=== PATIENT | male | born 1965 | race Caucasian/White ===

== ENCOUNTER 2018-10-18 09:09 | Outpatient (CLI) | payer OTHER, BC ==
[2018-10-18 10:30] LABS: #Eosinphils 0.1 thou/uL (0.0-0.7); #Lymphocytes 1.4 thou/uL (1.20-3.40); #Monocytes 0.8 thou/uL (0.11-0.59); #Neutrophils 6.3 thou/uL (1.40-6.50); %Basophils 0.2 % (0.0-1.0); %Eosinophils 1.7 % (0.0-10.0); %Lymphocytes 16.1 % (21.0-51.0); %Monocytes 9.2 % (0.0-10.0); %Neutrophils 72.8 % (42.0-75.0); Hemoglobin 14.5 g/dL (14.0-18.0); Mean Corpuscular HGB CONC 34.1 g/dL (32.0-36.0); Mean Corpuscular Hemoglobin 28.9 pg (27.0-31.0); Mean Corpuscular Volume 84.7 fL (78.0-98.0); Mean Platelet Volume 7.6 fL (7.4-10.4); Platelet Count 256 thou/uL (130-400); RBC Distribution Width 12.7 % (11.5-14.5); White Blood Cell (WBC) Count 8.7 thou/uL (4.8-10.8)
[2018-10-18 10:56] LABS: ALT (SGPT) 18 U/L (8-55); AST (SGOT) 17 U/L (5-34); Albumin 4.1 g/dL (3.5-5.0); Alkaline Phosphatase 83 U/L (40-150); Anion Gap 12 mmol/L (10-20); BUN (Urea Nitrogen) 15 mg/dL (8.4-25.7); Bilirubin, Total 0.5 mg/dL (0.2-1.2); Calc. Creatinine Clearance 0 mL/min (70-130); Calcium 9.3 mg/dL (7.8-10.44); Carbon Dioxide 23 mmol/L (22-29); Chloride 106 mmol/L (98-107); Estimated GFR-MDRD Greater than 90; Globulin 2.6 g/dL (2.4-3.5); Glucose 97 mg/dL (70-105); Potassium 4.3 mmol/L (3.5-5.1); Protein, Total 6.7 g/dL (6.0-8.3); Sodium 137 mmol/L (136-145)
--- NOTE | 2018-10-18 12:51 | EKG ---
Test Reason : Blood Pressure : / mmHG Vent. Rate : 067 BPM Atrial Rate : 067 BPM P-R Int : 188 ms QRS Dur : 098 ms QT Int : 388 ms P-R-T Axes : 057 046 027 degrees QTc Int : 409 ms Normal sinus rhythm Normal ECG No previous ECGs available Confirmed by DANIEL OBRJAS, DR. Ching ([id number]) on 10/18/2018 12:51:16 PM Referred By: KHOA Confirmed By:DR. Jeane SANCHEZ MD
== END 2018-10-18 09:10 | disposition home or self-care (01) ==
LOC: LABBT 09:09
PROVIDERS: ATTEND Surgery
DX: Z01.818 Encounter for other preprocedural examination (principal); K40.90 Unilateral inguinal hernia, without obstruction or gangrene, not specified as recurrent
CPT/HCPCS: 80053; 85025; 93005; 93010

== ENCOUNTER 2018-10-19 05:57 | Day surgery (SDC) | payer OTHER, BC ==
[2018-10-18 09:43] VITALS: BMI 42.5
[2018-10-19] MEDS ORDERED: Bupivacaine/Epinephrine 0.25% 30 ML VIAL ONE (06:32)
[2018-10-19] MEDS ORDERED: Levofloxacin 500 mg/D5W 100 ml Premix Bag ONE (06:35)
[2018-10-19] MEDS ORDERED: Fentanyl 100 MCG/2 ML VIAL ONE (06:45)
--- NOTE | 2018-10-19 11:46 | OP ---
DATE OF PROCEDURE: 10/19/2018 PREOPERATIVE DIAGNOSIS: Bilateral inguinal hernias. PROCEDURE PERFORMED: Laparoscopic robotic-assisted right inguinal hernia repair. INDICATIONS: This is a 53-year-old male, who was felt to have bilateral inguinal hernias preoperatively. FINDINGS: He only had a right inguinal hernia. There was no left-sided hernia. He is morbidly obese, so it was difficult to tell preoperatively. DESCRIPTION OF PROCEDURE: After informed consent was obtained, the patient was taken to the operating room and given general endotracheal anesthesia, he was placed in the supine position. Abdomen was prepped and draped in usual fashion. Local anesthesia infiltrated subcutaneously and deep, and a supraumbilical incision was performed. Subcu divided sharply. The fascia grasped and incision made. A blunt 12 mm trocar inserted. Pneumoperitoneum was created to a pressure of 15 mmHg. Under direct vision utilizing the 30-degree laparoscope, two 8 mm ports were placed just lateral to the rectus at the level of first incision. The patient was then placed in Trendelenburg position and the robot docked. Then, I went below. The pelvis was inspected. There was a definite right inguinal hernia, but there was no left inguinal hernia. I took a picture to document it. So, the right inguinal hernia was repaired. The peritoneum was opened from medial umbilical ligament laterally. Then, the subperitoneal plane was developed using blunt and sharp dissection. The pubic tubercle was exposed. The hernia was found and the hernia sac was dissected out. It was a fairly large hernia, this was reduced. A large right-sided contour mesh was inserted intra-abdominally and placed within this pocket. It was secured to the pubic tubercle with a 2-0 silk suture, tied intracorporeally, and to the anterior abdominal wall just medial to the epigastric vessels with a 2-0 silk suture tied intracorporeally. Hemostasis was assured. The peritoneum was closed from lateral to medial utilizing a running PDS V-Loc, 3-0. Hemostasis was assured. Trocars and retractors were removed. The fascia was closed with interrupted 0 Vicryl suture. The skin was closed with interrupted 4-0 Rapide. Dermabond applied. The patient tolerated the procedure well, transferred to Recovery in good condition. Sponge and needle count verified correct x2. Job ID: [id number]
== END 2018-10-19 10:50 | disposition home or self-care (01) ==
LOC: SDC 05:57
PROVIDERS: ATTEND Surgery
PROC: 0YQA4ZZ Repair Bilateral Inguinal Region, Percutaneous Endoscopic Approach (ICD-10-PCS; principal; 2018-10-19)
DX: K40.90 Unilateral inguinal hernia, without obstruction or gangrene, not specified as recurrent (principal); E66.01 Morbid (severe) obesity due to excess calories; Z68.41 Body mass index [BMI] 40.0-44.9, adult; Z79.84 Long term (current) use of oral hypoglycemic drugs; Z79.899 Other long term (current) drug therapy; Z88.0 Allergy status to penicillin
CPT/HCPCS: C1781; J0131; J1956; J3010